=== PATIENT | male | born 1990 | race Hispanic/Latino ===

== ENCOUNTER 2021-05-23 20:18 | Emergency (ER) | payer OTHER ==
[~2021-05-23] VITALS: Ht 177.8 cm; Wt 94.3 kg
[2021-05-23] MEDS ORDERED: CLONIDINE HCL 0.1 MG TABLET PO ONE (22:00)
[2021-05-23 22:11] LABS: EOSINOPHILS % (AUTO) 4.8 % (0.0-8.0); HEMATOCRIT 28.3 % (42-54); LYMPHOCYTES % (AUTO) 14.9 % (21.0-51.0); MEAN CORPUSCULAR HEMOGLOBIN 32.4 pg (27.0-33.0); MEAN CORPUSCULAR VOLUME 89.8 fL (79-99); MONOCYTES % (AUTO) 10.2 % (3.0-13.0); NEUTROPHILS % (AUTO) 68.8 % (40.0-77.0); PLATELET COUNT (AUTO) 196 K/uL (130-400); RED BLOOD CELL COUNT(AUTO) 3.15 MIL/uL (4.50-6.20); RED CELL DISTRIBUTION WIDTH 12.6 % (11.0-15.5); WHITE BLOOD COUNT (AUTO) 6.9 K/uL (4.8-10.8)
[2021-05-23] MEDS ORDERED: CLONIDINE HCL 0.1 MG TABLET ONE (22:24)
[2021-05-23 22:25] LABS: ALBUMIN 3.2 g/dL (3.5-5.0); BILIRUBIN,TOTAL 0.3 mg/dL (0.2-1.0); POTASSIUM 4.2 mmol/L (3.5-5.1)
[2021-05-23 22:26] LABS: CREATININE 14.4 mg/dL (0.5-1.5)
[2021-05-24] MEDS ORDERED: ONDANSETRON 4MG INJ IVP ONE
[2021-05-24] MEDS ORDERED: METOCLOPRAMIDE 10 MG/2 ML VIAL IVP ONE
[2021-05-24] MEDS ORDERED: FAMOTIDINE 20MG VIAL IV ONE
[2021-05-24] MEDS ORDERED: HYDRALAZINE 20MG/ML VIAL ONE (00:28)
[2021-05-24] MEDS ORDERED: HYDRALAZINE 20MG/ML VIAL IV ONE ×2 (00:30→01:30)
[2021-05-24] MEDS ORDERED: CLONIDINE HCL 0.1 MG TABLET PO ONE (01:30)
[2021-05-24] MEDS ORDERED: PANT40TA PO (01:38)
[2021-05-24] MEDS ORDERED: METO-296 PO (01:38)
[2021-05-24] MEDS ORDERED: ONDA4TAB10 PO (01:38)
[2021-05-24] MEDS ORDERED: DICY20TA2 PO (01:38)
[2021-05-24] MEDS ORDERED: ONDANSETRON ODT 4MG TAB SL ONE (02:00)
[2021-05-24 02:26] VITALS: BP 145/80
== END 2021-05-24 02:29 | disposition home or self-care (01) ==
LOC: EDH 20:18
DX: R11.2 Nausea with vomiting, unspecified (principal); R19.7 Diarrhea, unspecified; R10.13 Epigastric pain; I12.0 Hypertensive chronic kidney disease with stage 5 chronic kidney disease or end stage renal disease; E11.22 Type 2 diabetes mellitus with diabetic chronic kidney disease; N18.6 End stage renal disease; Z79.899 Other long term (current) drug therapy; Z99.2 Dependence on renal dialysis
CPT/HCPCS: 36415; 71045; 80053; 84484; 85025; 93005; 96374; 96375; 99285; J0360; J2405; J2765; J3490